=== PATIENT | male | born 1970 | race Caucasian/White ===

== ENCOUNTER 2021-01-10 13:53 | Emergency (ER) | payer MEDICAID, SELFPAY ==
[2021-01-10 13:53] VITALS: BP 147/95; PULSE 88; RESP 18; TEMP 36.4; O2SAT 96; BMI 34.0
--- NOTE | 2021-01-10 14:30 | RAD_ITS ---
STUDY: X-RAY CHEST REASON FOR EXAM: Male, 50 years old. SOB -- WAITING ROOM TECHNIQUE: Single AP portable view of the chest. COMPARISON: Comparison is made with prior study of 03/24/2016. FINDINGS: There is hyperinflation of the lungs consistent with chronic obstructive lung disease (COPD). Scattered calcified granulomas. There is no demonstrated pleural abnormality. Normal size heart. Normal mediastinum and jeffrey. Normal visualized pulmonary arteries. Normal visualized aortic arch and descending thoracic aorta. Normal visualized thoracic spine. Normal visualized ribs, clavicles, and shoulders. There is no demonstrated abnormality of the visualized soft tissue structures of the upper abdomen. RAD/Chest 1 View (Portable) IMPRESSION: Hyperinflation. The lungs are clear. Electronically Signed: Robinson Wesley MD at 15:04 EST , Service support ,
--- NOTE | 2021-01-10 14:52 | NURSING ---
NO OLD EKGS
[2021-01-10 15:17] VITALS: O2SAT 96
--- NOTE | 2021-01-10 15:19 | EDS_ITS ---
HPI History of Present Illness Chief Complaint: Shortness of Breath Informant: patient Narrative Narrative: Patient states that just before Thanksgiving he felt ill. He states he was having some cough and other Covid-like symptoms so he went to [facility] emergency room yesterday where he states that he was tested positive. States that he received an inhaler and some Mucinex. He states that since that visit he is gotten more short of breath. He notes difficulty bringing phlegm up. He notes that he has underlying asbestosis and COPD. No current fevers. He does not wear home oxygen [facility] Medical History (Updated 01/10/21 @ 15:[address] Ignacio Hidalgo DO) COPD (chronic obstructive pulmonary disease) H/O asbestosis Home Medications etodolac 300 mg PO TIDCM #20 capsule 06/26/16 [Rx Last Taken Unknown] albuterol sulfate 2.5 mg INHALATION Q4H PRN #25 vial 01/10/21 [Rx Last Taken Unknown] prednisone 60 mg PO DAILY #15 tablet 01/10/21 [Rx Last Taken Unknown] Allergy/AdvReac Type Severity Reaction Status Date / Time No Known Allergies Allergy Verified 01/10/21 13:57 Social History (Updated 01/10/21 @ 15:[address] Ignacio Hidalgo DO) Smoking Status: Current every day smoker tobacco type: cigarettes substance use type: does not use ROS ROS ED Constitutional Constitutional ED: Reports fever(s); Denies chills or weight loss Eyes Eyes: Denies change in vision or diplopia ENT ENT ED: Reports rhinorrhea; Denies ear pain or sore throat Cardiovascular Cardiovascular: Denies chest pain, orthopnea, palpitations or racing heartbeat Respiratory/Chest Respiratory/Chest: Reports cough, dyspnea, dyspnea on exertion and sputum; Denies orthopnea Gastrointestinal Gastrointestinal: Denies abdominal pain, diarrhea, nausea or vomiting Genitourinary Genitourinary ED: Denies dysuria, hematuria or urinary frequency Musculoskeletal Musculoskeletal: Denies arthralgias or myalgias Integumentary Denies abscess or rash Neurologic Neurologic: Denies headache(s) or weakness Psychiatric Psychiatric: Denies anxiety, depression, suicidal ideation or suicidal thoughts Endocrine Endocrinology: Denies polydipsia, polyphagia or polyuria Allergic/Immunologic Allergic/Immunologic ED: Denies mouth swelling, tongue swelling or urticaria EXAM Physical Exam Const Vital Signs: 01/10/21 13:53 01/10/21 15:17 01/10/21 15:20 Temperature 97.6 F L Temperature Source Temporal Pulse Rate 88 Respiratory Rate 18 18 Respiratory Effort Normal Short of Breath Respiratory Depth Normal Respiratory Pattern Normal Blood Pressure 147/95 H Blood Pressure Mean 112 Pulse Ox 96 96 Oxygen Delivery Method Room Air Room Air Room Air 01/10/21 15:38 Temperature Temperature Source Pulse Rate 79 Respiratory Rate 18 Respiratory Effort Respiratory Depth Respiratory Pattern Blood Pressure Blood Pressure Mean Pulse Ox Oxygen Delivery Method Positive well nourished and well developed General Appearance ED: well developed HEENT Reports normocephalic, head/scalp atraumatic, TM's clear and moist mucous membra annie atraumatic Tympanic Membrane ED: Yes TM's clear Eyes PERRL and EOMs intact bilaterally Neck no lymphadenopathy, supple and no JVD Resp Auscultation: rhonchi, wheezes expiratory wheezes and diminished lung sounds Cardio regular rate, regular rhythm and no murmurs GI normal to inspection, nondistended, normoactive bowel sounds and non-tender Palpation: soft Back/Spine no CVA tenderness and normal ROM Extremity normal to inspection General Extremety ED: Negative for edema General Extremity: Negative for edema Neuro oriented x3 and CN's II-XII intact bilaterally Sensorium / Orientation: alert Motor Exam: strength 5/5 throughout Psych mental status grossly normal Mood & Affect: Negative for depressed or tearful Skin no rashes or lesions noted and no wounds MDM MDM MDM Narrative Medical decision making narrative: My interpretation of the chest x-ray is no acute process. Patient received a DuoNeb and prednisone. Repeat lung auscultation finds clear lungs and significantly improved aeration. I will write for the patient have albuterol MDI as well as prednisone at home. Return if worsening or concerns Radiography Diagnostic Testing: Clinical Impression(s) from Imaging Studies Chest X-Ray 01/10/21 14:30 IMPRESSION: Hyperinflation. The lungs are clear. Electronically Signed: Robinson Wesley MD at 15:04 EST , Service support , Discharge Plan Triage Chief Complaint: Shortness of Breath ED Provider: Ignacio Hidalgo Dx/Rx/DC Orders Clinical Impression: COVID-19, Bronchospasm, acute Instructions: Coronavirus Disease 2019 (COVID-19): Caring for Yourself or Others Prescriptions: New albuterol sulfate 2.5 MG/3 ML solution for nebulization 2.5 mg inhalation Q4H PRN Qty: 25 RF: 0 prednisone 20 MG tablet 60 mg PO DAILY Qty: 15 RF: 0 No Action etodolac 300 MG capsule 300 mg PO TIDCM Qty: 20 RF: 0 Primary Care Provider: Malcolm Lozano Referrals: Malcolm Lozano MD [Primary Care Provider] - As Needed Disposition Disposition: Home, Self Care
[2021-01-10 15:20] VITALS: RESP 18; O2SAT 96
[2021-01-10] MEDS: predniSONE 20 MG Tablet 60 MG PO (15:32)
[2021-01-10] MEDS: Ipratropium/Albuterol Sulfate 3 ML AMPUL.NEB INHALATION (15:35)
[2021-01-10 15:38] VITALS: PULSE 79; RESP 18
== END 2021-01-10 16:03 | disposition home or self-care (01) ==
LOC: ED 15:59
PROVIDERS: Emergency Provider Emergency Medicine; PCP Family Medicine
DX: U07.1 COVID-19 (principal); J98.01 Acute bronchospasm; F17.210 Nicotine dependence, cigarettes, uncomplicated; J44.9 Chronic obstructive pulmonary disease, unspecified
CPT/HCPCS: 71045; 94640; 94760; 99283